=== PATIENT | male | born 2000 | race Caucasian/White ===

== ENCOUNTER 2019-02-19 16:49 | Emergency (ER) | payer SELFPAY ==
[~2019-02-19] VITALS: Ht 180.3 cm; Wt 141.8 kg
[2019-02-19] MEDS ORDERED: IBUPROFEN 100 MG/5 ML SUSPENSION UDCUP PO ONE (18:00)
[2019-02-19 18:20] VITALS: BP 131/78
== END 2019-02-19 18:42 | disposition home or self-care (01) ==
LOC: EMS 16:51
DX: S83.92XA Sprain of unspecified site of left knee, initial encounter (principal); Z88.0 Allergy status to penicillin; X58.XXXA Exposure to other specified factors, initial encounter; Y93.89 Activity, other specified; Y92.89 Other specified places as the place of occurrence of the external cause; Y99.8 Other external cause status
CPT/HCPCS: 29505